=== PATIENT | male | born 1970 | race Caucasian/White ===

== ENCOUNTER → 2016-10-20 | Outpatient (CLI) | payer BC ==
[2016-10-20 14:33] LABS: ALT 39 U/L (21-72); AST 20 U/L (17-59); Alkaline Phosphatase 44 U/L (38-126); Anion Gap 10 mmol/L; Blood Urea Nitrogen 13 mg/dL (9-20); Calcium 9.7 mg/dL (8.4-10.2); Carbon Dioxide 28 mmol/L (22-30); Chloride 107 mmol/L (98-107); Cholesterol 170 mg/dL (<200); Glucose 88 mg/dL (74-99); HDL Cholesterol 50 mg/dL (40-60); Non-African American GFR(MDRD) >60 (>60 ml/min/1.73 sqM); Potassium 4.4 mmol/L (3.5-5.1); Sodium 145 mmol/L (137-145); Total Bilirubin 1.2 mg/dL (0.2-1.3); Total Protein 7.1 g/dL (6.3-8.2); Triglycerides 102 mg/dL (<150)
== END ==
LOC: LABWHC1 14:06
PROVIDERS: ATTEND Internal Medicine Clinical Cardiac Electrophysiology
DX: I10 Essential (primary) hypertension (principal); I48.91 Unspecified atrial fibrillation
CPT/HCPCS: 36415; 80053; 80061

== ENCOUNTER → 2017-03-16 | Outpatient (CLI) | payer BC ==
--- NOTE | 2017-03-16 18:06 | MR ---
EXAMINATION TYPE: MR angio head wo con DATE OF EXAM: 03/16/2017 COMPARISON: NONE HISTORY: Family hx of Aneurysm, Primary care recommended TECHNIQUE: Utilizing 3-D [id number] intracranial MRA of the [place] was performed. FINDINGS: The vertebrobasilar and carotid systems are patent. There is no sizable aneurysm or vascular malform ation. Posterior cerebral artery in the right originates from the internal circulation. IMPRESSION: 1. No evidence of vascular malformation or sizable aneurysm.
--- NOTE | 2017-03-16 18:13 | MR ---
EXAMINATION TYPE: MR cervical spine wo con DATE OF EXAM: 03/16/2017 COMPARISON: NONE HISTORY: Neck pain with Left Shoulder, Left Arm and Hand With Tingling TECHNIQUE: Multiplanar, multisequence images of the cervical spine were acquired. C2-C3: Posterior cervical spondylosis and mild facet arthropathy. Neural foramina remain patent. No d isc herniation or canal stenosis. C3-C4: Mild degenerative disc disease with posterior cervical spondylosis. There is a focal central a nd right paracentral disc protrusion or small herniation capped by spur extending laterally to the ri ght with moderate effacement of thecal sac and borderline to mild canal stenosis. Uncovertebral joint hypertrophy is seen with mild to moderate bilateral foraminal encroachment. C4-C5: Severe degenerative disc disease with diffuse disc protrusion centrally with greater involveme nt paracentrally to the left. Uncovertebral joint hypertrophy noted bilaterally. Moderate canal steno sis and moderate bilateral foraminal encroachment. Disc protrusion extends greater paracentrally and laterally to the left. C5-C6: Severe degenerative disc disease and broad-based central and left paracentral disc protrusion capped by spur with moderate effacement of thecal sac. No spinal cord contact although there is displ acement of the spinal cord secondary to mass effect upon the thecal sac. Moderate bilateral foraminal encroachment greater on the left. C6-C7: Broad-based central left paracentral disc protrusion capped by spur with uncovertebral joint h ypertrophy. Moderate to severe left foraminal encroachment and moderate right foraminal encroachment. There is moderate effacement of thecal sac and AP canal stenosis. C7-T1: Central broad-based disc bulging with mild effacement of thecal sac. No canal stenosis or fora jarrett encroachment. Cervical segments are intact. There is normal alignment. Cervical spinal cord is of normal signal. Craniovertebral junction relationships are within normal limits. There is loss of normal cervical l ordosis. There is a prominence of the thyroid gland with subcentimeter right-sided thyroid nodule IMPRESSION: 1. Multilevel degenerative disc disease with multilevel canal stenosis in multilevel disc protrusions result in significant foraminal encroachment as discussed above.
== END | disposition home or self-care (01) ==
LOC: RADMRIMAIN 16:32
PROVIDERS: ATTEND Nurse Practitioner
DX: M48.02 Spinal stenosis, cervical region (principal); M50.23 Other cervical disc displacement, cervicothoracic region; M50.31 Other cervical disc degeneration, high cervical region; Z82.49 Family history of ischemic heart disease and other diseases of the circulatory system
CPT/HCPCS: 70544; 72141

== ENCOUNTER → 2020-05-09 | Outpatient (CLI) | payer BC ==
[2020-05-09 14:47] LABS: HGB 14.6 gm/dL (13.0-17.5); MCH 29.2 pg (25.0-35.0); MCHC 33.2 g/dL (31.0-37.0); MCV 87.9 fL (80.0-100.0); Mean Platelet Volume 7.8; Platelet Count 186 k/uL (150-450); RBC 5.01 m/uL (4.30-5.90); RDW 13.9 % (11.5-15.5); WBC 6.8 k/uL (3.8-10.6)
[2020-05-09 20:34] LABS: African American GFR (CKD) 102.7 (60.0-200.0); Albumin 4.3 g/dL (3.80-4.90); Albumin/Globulin Ratio 2.15 (1.60-3.17); Anion Gap 9.7 mmol/L (4.00-12.00); Calcium 9.4 mg/dL (8.7-10.3); Carbon Dioxide 24.3 mmol/L (21.6-31.8); Chol/HDL Ratio 4.43; Non-African American GFR(CKD) 88.6 (60.0-200.0); Potassium 3.9 mmol/L (3.5-5.5); Total Bilirubin 0.9 mg/dL (0.2-1.2); Total Protein 6.3 g/dL (6.2-8.2)
[2020-05-09 20:42] LABS: T4, Free (Free Thyroxine) 1.1 ng/dL (0.80-1.80)
== END | disposition home or self-care (01) ==
LOC: LABWHC1 14:04
PROVIDERS: ATTEND Nurse Practitioner Adult Health
DX: E78.5 Hyperlipidemia, unspecified (principal); I48.0 Paroxysmal atrial fibrillation; I10 Essential (primary) hypertension
CPT/HCPCS: 36415; 80053; 80061; 83735; 84439; 84443; 84481; 85027

== ENCOUNTER → 2020-08-26 | Outpatient (CLI) | payer BC ==
[2020-08-26 14:57] LABS: HCT 46.4 % (39.0-53.0); HGB 15.9 gm/dL (13.0-17.5); MCH 29.6 pg (25.0-35.0); MCHC 34.3 g/dL (31.0-37.0); MCV 86.3 fL (80.0-100.0); Mean Platelet Volume 7.7; Platelet Count 219 k/uL (150-450); Poikilocytosis Slight; RBC 5.37 m/uL (4.30-5.90); RDW 14.7 % (11.5-15.5); WBC 7.9 k/uL (3.8-10.6)
[2020-08-26 15:12] LABS: Potassium 4.3 mmol/L (3.5-5.1)
== END | disposition home or self-care (01) ==
LOC: LABPAT 13:31
PROVIDERS: ATTEND Internal Medicine Clinical Cardiac Electrophysiology
DX: Z01.818 Encounter for other preprocedural examination (principal); I48.21 Permanent atrial fibrillation
CPT/HCPCS: 36415; 80051; 82565; 84520; 85027

== ENCOUNTER → 2020-09-25 | Outpatient (CLI) | payer BC ==
[2020-09-25 15:52] LABS: HCT 47.4 % (39.0-53.0); HGB 15.8 gm/dL (13.0-17.5); MCH 28.4 pg (25.0-35.0); MCHC 33.3 g/dL (31.0-37.0); MCV 85.3 fL (80.0-100.0); Mean Platelet Volume 7.8; Platelet Count 225 k/uL (150-450); RBC 5.55 m/uL (4.30-5.90); RDW 14.2 % (11.5-15.5); WBC 8.1 k/uL (3.8-10.6)
[2020-09-25 16:08] LABS: African American GFR (CKD) >90 (>60 ml/min/1.73 sqM); Anion Gap 7 mmol/L; Blood Urea Nitrogen 16 mg/dL (9-20); Carbon Dioxide 30 mmol/L (22-30); Chloride 107 mmol/L (98-107); Non-African American GFR(CKD) 79 (>60 ml/min/1.73 sqM); Potassium 4.5 mmol/L (3.5-5.1); Sodium 144 mmol/L (137-145)
== END | disposition home or self-care (01) ==
LOC: LABPAT 15:20
PROVIDERS: ATTEND Internal Medicine Clinical Cardiac Electrophysiology
DX: Z01.812 Encounter for preprocedural laboratory examination (principal)
CPT/HCPCS: 80051; 82565; 84520; 85027

== ENCOUNTER 2020-10-06 09:32 | Day surgery (SDC) | payer BC ==
[2020-10-01 18:10] VITALS: BMI 43.6
[2020-10-06] MEDS ORDERED: SODIUM CHLORIDE 0.9% 1,000 ML IV ONE (09:58)
[2020-10-06] MEDS ORDERED: HEPARIN SOD,PORK IN 0.45% NACL 25,000 UNIT in 0.45% NACL 1 250ML.BAG IV ONE (12:30)
[2020-10-06] MEDS ORDERED: MIDAZOLAM 2 MG/2 ML VIAL ONE (12:44)
[2020-10-06] MEDS ORDERED: HEPARIN SODIUM,PORCINE 10,000 UNIT/ML 1 ML VIAL ONE (12:44)
[2020-10-06] MEDS ORDERED: PROTAMINE SULFATE 10 MG/ML 5 ML VIAL IV ONE (12:44)
[2020-10-06] MEDS ORDERED: GLYCOPYRROLATE 0.2 MG/ML 2 ML VIAL ONE (12:44)
[2020-10-06] MEDS ORDERED: ISOPROTERENOL 250 MCG/1.25 ML SYR IV ONE (12:44)
[2020-10-06] MEDS ORDERED: PHENYLEPHRINE-0.9% NACL SYG 1,000 MCG/10 ML SYRINGE ONE (12:44)
[2020-10-06] MEDS ORDERED: PROPOFOL 10 MG/ML 20 ML VIAL IV ONE (12:44)
[2020-10-06] MEDS ORDERED: FUROSEMIDE 10 MG/ML 2 ML VIAL ONE (12:44)
[2020-10-06] MEDS ORDERED: NEOSTIGMINE 1 MG/ML 10 ML VIAL ONE (12:44)
[2020-10-06] MEDS ORDERED: fentaNYL (PF) 50 MCG/ML 2 ML AMP ONE (12:44)
[2020-10-06] MEDS ORDERED: LIDOCAINE 1% INJ 10MG/ML (20 ML MDV) ONE ×2 (12:44→13:00)
[2020-10-06] MEDS ORDERED: SUCCINYLCHOLINE CHLORIDE VIAL 200 MG/10 ML VIAL IV ONE (12:44)
[2020-10-06] MEDS ORDERED: ROCURONIUM 10 MG/ML (5 ML VIAL) IV ONE (12:44)
[2020-10-06] MEDS ORDERED: LIDOCAINE 1% INJ 10MG/ML (20 ML MDV) SQ ONE (13:22)
[2020-10-06] MEDS ORDERED: IOPAMIDOL-370 100ML BTL INJ ONE (15:35)
[2020-10-06] MEDS ORDERED: LACTATED RINGERS 1,000 ML IV ONE (15:36)
[2020-10-06] MEDS ORDERED: HEPARIN SODIUM (1,000 UNIT/ML) 1,000 UNIT in SODIUM CHLORIDE 0.9% 1,000 ML IRRIGATION ONE (15:37)
[2020-10-06] MEDS ORDERED: HYDROcodone/APAP 5-325MG 1 EACH TAB PO PRN (17:26)
[2020-10-06] MEDS ORDERED: ACETAMINOPHEN TAB 325 MG TAB PO PRN (17:26)
[2020-10-06] MEDS ORDERED: ACETAMINOPHEN IV (For NPO) 1,000 MG in EMPTY BAG 1 BAG IVPB ONE (17:26)
--- NOTE | 2020-10-06 17:37 | P.HPCAR ---
History of Present Illness This is Dr. العراقي dictating an H/P on this patient The patient was interviewed and examined IMPRESSION / ASSESSMENT: Persistent atrial fibrillation, refractory to drug therapy Hypertension Past history of PVI, antral isolation almost 7-8 years back Increased BMI PLAN: A. fib ablation under general anesthesia Continue ELIQUIS HPI Patient has been experiencing palpitations persistently since Thanksgiving when he walks briskly or long distance he definitely feels the difference and feels tired and fatigued. No dizziness no syncope no chest discomfort Today he looked comfortable no fever chills cough no chest discomfort no undue shortness of breath orthopnea PND ROS: No fever chills or rigors, no cough, phlegm or expectoration, no nausea, vomiting or diarrhea, no hematuria, dysuria, no musculoskeletal complaints, no strokes or seizures, no skin lesions. 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 History of obstructive sleep apnea using CPAP mask History of increased BMI LDL 112, HDL 40, total pressure 177 Sodium 144 potassium 4.5 BUN 16 creatinine 1.1 normal GFR Magnesium 2.0 Normal liver function TSH 0.86, free T4 1 0.1, free T3 3 0.5, which are normal Hemoglobin 15.8, platelet count 225,000, white count 8.1 thousand Physical Exam Vitals: Vital Signs Temp Pulse BP Pulse Ox 10/06/20 09:56 97.9 F 110 H 136/93 98 Intake and Output 10/06/20 10/06/20 10/06/20 06:59 14:59 22:59 Intake Total 1040.7 1411 Output Total 500 Balance 1040.7 911 Intake: IV 1040.7 1411 Output: Urine 500 Other: Weight 156.4 kg Past Medical History Past Medical History: Hypertension, Sleep Apnea/CPAP/BIPAP Additional Past Medical History / Comment(s): SEE DR العراقي'S HISTORY AND PHYSICAL FOR CARDIAC HISTORY ,USES C PAP MACHINE History of Any Multi-Drug Resistant Organisms: None Reported Past Surgical History: Cardiac Ablation, Orthopedic Surgery Additional Past Surgical History / Comment(s): CARDIAC ABLATION X3, RIGHT FOOT SURGERY WITH SCREWS, RIGHT FOREARM-PLATE AND SCREWS, MIDDLE AND RING FINGER OF LEFT HAND, Past Anesthesia/Blood Transfusion Reactions: Postoperative Nausea & Vomiting (PONV) Smoking Status: Former smoker - Past Family History Mother Family Medical History: No Reported History Physical Examination Vital Signs Temp Pulse BP Pulse Ox 10/06/20 09:56 97.9 F 110 H 136/93 98 Intake and Output 10/06/20 10/06/20 10/06/20 06:59 14:59 22:59 Intake Total 1040.7 1411 Output Total 500 Balance 1040.7 911 Intake: IV 1040.7 1411 Output: Urine 500 Other: Weight 156.4 kg Results Current Medications Generic Name Dose Route Start Last Admin Trade Name Freq PRN Reason Stop Dose Admin Acetaminophen 650 mg 10/06/20 17:26 Acetaminophen Tab 325 Mg Tab PO Q6HR PRN Mild Pain Hydrocodone Bitart/Acetaminophen 1 each 10/06/20 17:26 Hydrocodone/Apap 5-325mg 1 Each Tab PO Q4HR PRN Moderate Pain Amlodipine Besylate 2.5 mg 10/06/20 21:00 Amlodipine 2.5 Mg Tab PO HS SANTA Apixaban 5 mg 10/06/20 21:00 Apixaban 5 Mg Tab PO BID SANTA Flecainide Acetate 100 mg 10/06/20 21:00 Flecainide 50 Mg Tab PO BID SANTA Sodium Chloride 1,000 mls @ 20 mls/hr 10/06/20 06:14 Saline 0.9% IV 11/05/20 06:15 .Q24H SANTA Acetaminophen 1,000 mg/ IV 100 mls @ 400 mls/hr 10/06/20 17:26 Solution IVPB 10/06/20 17:40 ONCE ONE Lisinopril 40 mg 10/07/20 09:00 Lisinopril 20 Mg Tab PO DAILY SANTA Metoprolol Succinate 25 mg 10/06/20 21:00 Metoprolol Succinate (Er) 25 Mg Tab.Er.24h PO BID SANTA Sodium Chloride 12 ml 10/06/20 21:00 Sodium Chloride 0.9% Flush 10 Ml Syringe IV Q12HR SANTA Intake and Output 10/06/20 10/06/20 10/06/20 06:59 14:59 22:59 Intake Total 1040.7 1411 Output Total 500 Balance 1040.7 911 Intake: IV 1040.7 1411 Output: Urine 500 Other: Weight 156.4 kg Patient Weight 10/07/20 06:59 Weight 156.4 kg
--- NOTE | 2020-10-06 17:40 | P.PRLE ---
RE: Kamran Guido Dear Jennifer Nashéctormagdalene came in with recurrent, persistent palpitations and was found to be in A. 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
--- NOTE | 2020-10-06 17:51 | P.EPPROC ---
- EP Procedure Note Electrophysiology Procedure Note: Procedure A. fib ablation/PVI Mitral reentrant atrial tachycardia ablation, successful, bidirectional block with differential pacing Linear ablation along the septum along complex fractionated electrograms Diagnosis Atrial fibrillation, symptomatic, refractory to therapy Persistent a symptomatic Result No left atrial appendage mass seen on intracardiac echo Successful A. fib ablation/pulmonary vein isolation of all veins using cryo- ablation Complete entrance block in all 4 veins confirmed No evidence for phrenic nerve injury Significantly dilated left atrium with very dilated left inferior and right inferior pulmonary veins Recovery of right and left superior pulmonary veins close to the antrum, successful cryoablation and isolation Successful ablation of mitral reentrant atrial tachycardia to sinus rhythm Linear ablation along complex fractionated electrograms, left atrial septum, in sinus rhythm Esophageal deflection YES , rightwards Electrical cardioversion with a synchronized shock across the chest NO Procedure details Patient was brought to the EP lab in a fasting state. Written informed consent was obtained prior to the procedure. Procedure performed under general anesthesia After initial muscle relaxant use, muscle relaxants were not given thereafter in order to assess phrenic nerve during procedure. Patient prepped and draped as per protocol Full cryo-set up with standard preparation of the cryoablation tools done. Femoral Venous access obtained on the right and left groins Venous and arterial Sheaths placed. Diagnostic catheters for the high right atrium, phrenic nerve stimulation and pacing, His bundle, RV and coronary sinus placed Intracardiac echo catheter placed. Long sheath placed in the right atrium Left and right transseptal catheterization performed under intracardiac echo guidance. Intravenous heparin with aCT above 300 Later, catheter positioning and balloon positioning in the left atrium, under intracardiac echo guidance Diagnostic EP study with Drug infusion Coronary sinus pacing and recording Baseline measurements Atrial tachycardia the start of the study, tachycardia cycle length to 66 ms QRS 106 ms, QT 328 ms Later in sinus rhythm ND interval 200 ms, sinus cycle length 880 ms AH interval 134 ms, HV interval 37 ms Atrial pacing performed from the high right atrium and the coronary sinus Burst stimulation in the coronary sinus from multiple sites Burst stimulation from the high right atrium Atrial extra stimulation Burst stimulation on Isuprel Transseptal catheterization performed RA pressure 15/7/11 LA pressure 18/5/12 Transseptal catheterization performed with standard sheath. The cryoablation sheath was then placed with an over the wire exchange without any acute complications. All 4 pulmonary veins were isolated in the following sequence: Left superior followed by left inferior followed by right superior followed by right inferior The cryo-ablation balloon was placed at the os of each vein 1.5 mL of IV dye was injected to confirm an occluded vein Goal during cryoablation was to achieve complete occlusion of the pulmonary vein, achieve -30 degrees C at 30 seconds and achieve -40 degrees C at 60 seconds and a time to effect of less than 60-90 seconds, . If not the balloon was repositioned to obtain this result After completion of Cryoblation with durations from 180-240 seconds, entrance block was confirmed with the Attain circular catheter in a roving fashion around the antrum of the pulmonary veins Phrenic nerve pacing was performed from the SVC, right innominate vein area and diaphragm voltage was monitored. Diaphragmatic contractions were also monitored manually for strength of contraction. Parameter goals for each cryo freeze Complete occlusion of the appropriate vein -30 degrees C by 30 seconds -40 degrees C by 60 seconds Minimum between minus 40-55 degrees C Thaw time greater than 10 seconds Balloon visualized by intracardiac echo The esophagus was intubated. Esophageal Temperature monitoring with a CIRCA ca theter formed. Esophageal deflection for hypothermia of the esophagus below 30 degrees C Left superior pulmonary vein Complete isolation, entrance block Left inferior pulmonary vein Complete isolation, entrance block Right superior pulmonary vein, during phrenic nerve pacing Complete isolation, entrance block Right inferior pulmonary vein, during phrenic nerve pacing Complete isolation, entrance block At the end of the procedure the Achieve catheter was once again used to check for entrance block Phrenic nerve stimulation was performed to confirm diaphragmatic stimulation the end of the procedure Cine fluoroscopy was performed at the very end of the procedure to confirm movement of both diaphragms with inspiration and expiration Patient was in an atrial tachycardia. 3-D electro anatomic mapping revealed mitral reentry This was confirmed with entrainment mapping both in the roof as well as in the mitral isthmus Linear ablation the mitral isthmus result in termination of the tachycardia Following that the line was completed and interrogated with differential pacing Bidirectional block with differential pacing Mapping in sinus rhythm Complex fractionated electrograms along the septum were mapped Linear ablation incorporating these areas along the left atrial septum This RF line was joint to the right-sided pulmonary vein ablation set At the end of the procedure the patient was extubated Heparin was reversed Venous sheaths were removed and hemostasis assured Procedures performed (PVI - CRYO Ablation and linear ablation of the mitral isthmus and the left atrial septum) Diagnostic EP study CS pacing and recording Left and right transseptal catheterization 3D mapping Intracardiac echocardiography Pulmonary vein isolation with transseptal and comprehensive EPS, [id number] Left atrial mitral isthmus reentrant tachycardia ablation, +[id number] Linear ablation, left atrium septum, +[id number] Drug Infusion +[id number]
[2020-10-06] MEDS: SODIUM CHLORIDE 0.9% 1,000 ML IV SCH (20:02)
[2020-10-06] MEDS: APIXABAN 5 MG TAB PO SCH (20:03)
[2020-10-06] MEDS: FLECAINIDE 50 MG TAB PO SCH (20:03)
[2020-10-06] MEDS: METOPROLOL SUCCINATE (ER) 25 MG TAB.ER.24H PO SCH (20:03)
[2020-10-06] MEDS ORDERED: amLODIPine 2.5 MG TAB PO SCH (21:00)
[2020-10-07] MEDS: SODIUM CHLORIDE 0.9% 1,000 ML IV SCH (05:26)
[2020-10-07 08:15] VITALS: BP 107/68; PULSE 76; RESP 20; TEMP 98
[2020-10-07] MEDS: APIXABAN 5 MG TAB PO SCH (08:26)
[2020-10-07] MEDS: FLECAINIDE 50 MG TAB PO SCH (08:26)
[2020-10-07] MEDS: METOPROLOL SUCCINATE (ER) 25 MG TAB.ER.24H PO SCH (08:26)
[2020-10-07] MEDS ORDERED: lisinopriL 20 MG TAB PO SCH (09:00)
--- NOTE | 2020-10-07 10:13 | P.DS ---
Providers Attending physician: Ander العراقي Primary care physician: [facility] Course: Patient is doing fairly well He complains of a sore throat but denies any chest discomfort. He is a little dizzy when he gets up but no loss of consciousness Groins if he well is minimal oozing last night there is no hematoma no swelling On examination his blood pressures 106/65 mmHg pulse rate is in the 80s afebrile 98.4F Breath sounds are clear no rhonchi no crackles Normal heart sounds normal S1 normal S2 no murmurs Abdomen soft nontender Extremities warm no edema no swelling minimal bruising in bilateral groins, no hematoma Impression Persistent atrial tachycardia, mitral reentry, status post successful ablation with proven bidirectional block with differential pacing Atrial fibrillation, persistent status post PVI Linear ablation along the septum behind the fossa ovalis along complex fractionated electrograms Plan Continue ELIQUIS Continue antihypertensive therapy Continue treatment for obstructive sleep apnea Weight loss recommended Start atorvastatin 20 mg by mouth daily, goal LDL reduction by at least 30%. LDL goal of less than 80-90 mg/dL, patient is nondiabetic Discharge home today and follow Dr. العراقي in about 2-3 weeks Plan - Discharge Summary Discharge Rx Participant: No New Discharge Prescriptions: New Atorvastatin [Lipitor] 20 mg PO DAILY #90 tablet Continue amLODIPine [Norvasc] 2.5 mg PO HS Metoprolol Succinate [Toprol XL] 25 mg PO BID Apixaban [Eliquis] 5 mg PO BID lisinopriL 40 mg PO DAILY Flecainide Acetate 100 mg PO BID Discharge Medication List Apixaban [Eliquis] 5 mg PO BID 10/01/20 [History] Flecainide Acetate 100 mg PO BID 10/01/20 [History] Metoprolol Succinate [Toprol XL] 25 mg PO BID 10/01/20 [History] amLODIPine [Norvasc] 2.5 mg PO HS 10/01/20 [History] lisinopriL 40 mg PO DAILY 10/01/20 [History] Atorvastatin [Lipitor] 20 mg PO DAILY #90 tablet 10/07/20 [Rx] Follow up Appointment(s)/Referral(s): Ander العراقي MD [STAFF PHYSICIAN] - 2 Weeks Activity/Diet/Wound Care/Special Instructions: Post EP study - Ablation instructions 1. Keep access sites dry for 2 days. 2. No heavy lifting or straining for 2 days. 3. Avoid bending the hips repeatedly for 2 days. 4. You may go up and down stairs slowly Call if the following is noted 1. Bleeding, increasing swelling or pain at the access sites. 2. Increasing chest discomfort, especially upon taking a deep breath. 3. Increasing shortness of breath, at rest or with exertion. 4. Undue cough / phlegm 5. Difficulty or pain while swallowing. 6. Pain or change in color in the extremities. 7. Fever, chills, rigors. 8. Increasing headache or neurologic symptoms. 9. Dizziness, fainting, palpitations Continue all current medications including flecainide and ELIQUIS Discharge Disposition: HOME SELF-CARE
== END 2020-10-07 15:23 | disposition home or self-care (01) ==
LOC: CATHEP 09:32 → 3SCARD 17:11 → CATHEP 10-07 15:23
PROVIDERS: ATTEND Internal Medicine Clinical Cardiac Electrophysiology
DX: I48.19 Other persistent atrial fibrillation (principal); I47.1 Supraventricular tachycardia; I10 Essential (primary) hypertension; Z79.01 Long term (current) use of anticoagulants; Z79.899 Other long term (current) drug therapy; Z87.891 Personal history of nicotine dependence; G47.30 Sleep apnea, unspecified; Z98.890 Other specified postprocedural states
CPT/HCPCS: 85347; 93623; 93662; 93613; 93655; 93656; C1769 ×4; C1894 ×2; C1730 ×2; C1759; C1893; C1733; C1766; C1732; J2250; J0330; J2720; J1644 ×3; J1940; J2710; J2001; J3010; J2370; J2704; Q9967; 93657

== ENCOUNTER → 2025-01-17 | Outpatient (CLI) | payer BC ==
[2025-01-17 15:08] LABS: HCT 43.2 % (39.6-50.0); MCH 29.5 pg (27.0-32.0); MCHC 32.4 g/dL (32.0-37.0); MCV 91.1 FL (80.0-97.0); Mean Platelet Volume 10.7 FL (9.5-12.2); NRBC Per 100 WBC 0 X 10*3/uL (0.00-0.01); Platelet Count 172 X 10*3/uL (140-440); RBC 4.74 X 10*6/uL (4.40-5.60); RDW 14.5 % (11.5-14.5)
[2025-01-17 15:24] LABS: Carbon Dioxide 25.6 mmol/L (21.6-31.8); Chloride 110 mmol/L (96-109); Potassium 4.2 mmol/L (3.5-5.5); Sodium 145 mmol/L (135-145)
== END | disposition home or self-care (01) ==
LOC: LABWHC1 09:48
PROVIDERS: ATTEND Internal Medicine Clinical Cardiac Electrophysiology
DX: Z01.812 Encounter for preprocedural laboratory examination (principal); I48.0 Paroxysmal atrial fibrillation
CPT/HCPCS: 80051; 82565; 84520; 85027

== ENCOUNTER 2025-02-21 09:24 | Day surgery (SDC) | payer BC ==
[2025-02-18 14:15] VITALS: BMI 36.6
[2025-02-21] MEDS: IV FLUID CONTINUATION 1,000 ML IV ONE ×2 (08:34→09:32)
[~2025-02-21 09:24] MED LIST: HYDROmorphone 0.5 MG/0.5 ML SYRINGE IVP PRN; MIDAZOLAM 2 MG/2 ML VIAL IV PRN
[2025-02-21] MEDS: SODIUM CHLORIDE 0.9% 1,000 ML IV SCH (09:32)
[2025-02-21] MEDS: ONDANSETRON 4 MG/2 ML VIAL IVP STA (10:27)
[2025-02-21] MEDS ORDERED: HEPARIN SODIUM,PORCINE 5,000 UNIT/ML 1 ML VIAL ONE (11:39)
[2025-02-21] MEDS ORDERED: ONDANSETRON 4 MG/2 ML VIAL ONE (11:39)
[2025-02-21] MEDS ORDERED: MIDAZOLAM 2 MG/2 ML VIAL ONE (11:39)
[2025-02-21] MEDS ORDERED: SUCCINYLCHOLINE CHLORIDE 200 MG/10 ML VIAL IV ONE (11:39)
[2025-02-21] MEDS ORDERED: ROCURONIUM 10 MG/ML (5 ML VIAL) IV ONE (11:39)
[2025-02-21] MEDS ORDERED: diphenhydrAMINE 50 MG/ML 1 ML VIAL ONE (11:39)
[2025-02-21] MEDS ORDERED: fentaNYL (PF) 50 MCG/ML 2 ML AMP ONE (11:39)
[2025-02-21] MEDS ORDERED: LIDOCAINE 1% INJ 10MG/ML (20 ML MDV) ONE (11:39)
[2025-02-21] MEDS ORDERED: HEPARIN SODIUM,PORCINE 10,000 UNIT/ML 1 ML VIAL ONE (11:39)
[2025-02-21] MEDS ORDERED: PROPOFOL 10 MG/ML 20 ML VIAL IV ONE (11:39)
[2025-02-21] MEDS: LIDOCAINE 1% INJ 10MG/ML (20 ML MDV) SQ ONE (11:41)
[2025-02-21] MEDS: HEPARIN SODIUM,PORCINE/D5W 25,000 UNIT in EMPTY BAG 1 BAG IV ONE (11:50)
--- NOTE | 2025-02-21 11:59 | P.HPCAR ---
History of Present Illness This is Dr. العراقي dictating an H/P on this patient The patient was interviewed and examined IMPRESSION / ASSESSMENT: Recurrent persistent atrial fibrillation Failed prior A-fib ablation and flecainide Increased BMI Hypertension PLAN: A-fib ablation, interrogate pulmonary veins, interrogate for mitral reentry Linear ablation of the left atrial roof and septum HPI Patient continues to have episodes of atrial fibrillation. His twelve-lead EKG has shown atrial fibrillation rather than macro reentry Cycle length almost 240 ms Denies any fever chills cough expectoration Symptomatic with palpitations and fatigue ROS: No fever chills or rigors, no cough, phlegm or expectoration, no nausea, vomiting or diarrhea, no hematuria, dysuria, no musculoskeletal complaints, no strokes or seizures, no skin lesions. EXAMINATION: 97.2 F, pulse irregular, blood pressure 144/90 mmHg No JVD No murmurs irregular rhythm but normal heart sounds Clear lungs no rhonchi no crackles REVIEW OF LABS, ECG & MEDICAL DATA Prior A-fib ablation involved PVI at an antral level, mitral reentry ablation Physical Exam Vitals: Vital Signs Temp Resp BP Pulse Ox 02/21/25 10:17 97.2 F L 16 144/90 100 Past Medical History Past Medical History: Atrial Fibrillation, Hyperlipidemia, Hypertension, Sleep Apnea/CPAP/BIPAP Additional Past Medical History / Comment(s): SEE DR العراقي'S HISTORY AND PHYSICAL FOR CARDIAC HISTORY ,USES C PAP MACHINE History of Any Multi-Drug Resistant Organisms: None Reported Past Surgical History: Cardiac Ablation, Orthopedic Surgery Additional Past Surgical History / Comment(s): CARDIAC ABLATION X3, RIGHT FOOT SURGERY WITH SCREWS, RIGHT FOREARM-PLATE AND SCREWS, MIDDLE AND RING FINGER OF LEFT HAND, Past Anesthesia/Blood Transfusion Reactions: Postoperative Nausea & Vomiting (PONV) Smoking Status: Former smoker - Past Family History Mother Family Medical History: No Reported History Physical Examination Vital Signs Temp Resp BP Pulse Ox 02/21/25 10:17 97.2 F L 16 144/90 100 Results Current Medications Generic Name Dose Route Start Last Admin Trade Name Freq PRN Reason Stop Dose Admin Hydromorphone HCl 0.5 mg 02/21/25 07:00 Hydromorphone 0.5 Mg/0.5 Ml Syringe IVP 02/21/25 23:00 Q5M PRN Phase 1 or 2 - Pain Control Sodium Chloride 1,000 mls @ 20 mls/hr 02/21/25 05:53 02/21/25 09:32 Saline 0.9% IV 03/23/25 05:52 20 mls/hr .Q24H SANTA Administration Lactated Ringer's 1,000 mls @ 20 mls/hr 02/21/25 05:53 Lactated Ringers IV 03/23/25 05:52 .Q24H SANTA Midazolam HCl 2 mg 02/21/25 07:00 Midazolam 2 Mg/2 Ml Vial IV 02/21/25 23:00 ONCE PRN Pre-Op Anxiety
[2025-02-21] MEDS: HEPARIN SODIUM,PORCINE (1 ML) 2,500 UNIT in SODIUM CHLORIDE 0.9% 250 ML IRRIGATION ONE (13:06)
[2025-02-21] MEDS: HEPARIN SODIUM,PORCINE 10,000 UNIT in SODIUM CHLORIDE 0.9% 1,000 ML IRRIGATION ONE (13:06)
[2025-02-21] MEDS: HEPARIN SODIUM (1,000 UNIT/ML) 1,000 UNIT in SODIUM CHLORIDE 0.9% 1,000 ML IRRIGATION ONE (13:06)
[2025-02-21] MEDS: IOPAMIDOL-370 100ML BTL INJ ONE (13:07)
[2025-02-21] MEDS ORDERED: ACETAMINOPHEN TAB 325 MG TAB PO PRN (16:55)
--- NOTE | 2025-02-21 17:13 | P.EPPROC ---
- EP Procedure Note Electrophysiology Procedure Note: PROCEDURE A. fib ablation with entry-level PVI, left atrial roof ablation, left atrial septal ablation, ablation in the left atrial anterior wall scar at risk for atrial reentry with isochronal mapping DIAGNOSIS Persistent atrial fibrillation, symptomatic, refractory to therapy including 2 prior A-fib ablations one in 2011, the other in 2020 RESULT No left atrial appendage mass seen on intracardiac echo, thickened pericardium with exudate in the pericardial space Large sized pulmonary veins Successful A. fib ablation/pulmonary vein isolation of all veins using cryo- ablation, large hoopa antral level isolation performed Complete entrance block in all 4 veins confirmed with voltage mapping No evidence for phrenic nerve injury Left atrial roof ablation with cryoablation lesions and complete broad line of block confirmed with voltage mapping. Left atrial septal ablation with cryoablation as well as RF ablation, posterior to the transseptal puncture site Mid anterior scar, patchy in nature and extending from the mitral annulus to the right pulmonary venous antrum. Isopril mapping performed, area at risk for reentry. Successful ablation from the mitral annulus to the right sided pulmonary veins, transecting this scar. In addition the patchy areas were encircled and entrance and exit block within the zones was confirmed with 3D mapping Esophageal deflection NO Electrical cardioversion with a synchronized shock across the chest YES PROCEDURE DETAILS Written informed consent prior to procedure. Patient brought to the EP lab. General anesthesia given. Heparin administered. ACT maintained above 300 seconds Both groins prepped and draped per protocol and venous sheaths placed. Esophagus intubated, circa catheter for temperature monitoring an endoscope for possible esophageal deflection. Phrenic nerve monitoring performed. Esophageal temperature monitoring performed. Esophageal deflection performed if circa catheter overlapping with the balloon or circa temperature less than 27.5°C Intracardiac echocardiography performed. Pericardium evaluated. Left atrial appendage evaluated. Left atrium evaluated along with pulmonary veins Transseptal catheterization performed under fluoroscopic guidance and intracardiac echo guidance Cryoablation sheath exchanged, balloon catheter along with achieve catheter placed in the left atrium. Pulmonary veins isolated in the following sequence: Left superior pulmonary vein followed by left inferior pulmonary vein, followed by right inferior pulmonary vein and lastly right superior pulmonary vein. Phrenic nerve stimulation along with capture thresholds within the SVC and right superior pulmonary vein to identify the phrenic nerve proximity to the cryo- balloon. Pulmonary veins isolated and confirmed with entrance and exit block. Phrenic nerve integrity confirmed at the end of the procedure Very large hoopa antral level ablation performed with subselective lesions that resulted in large antral ablation. This took extra time and effort Ablation of the left atrial roof performed with sequential lesions from the left superior to the right superior pulmonary veins. Ablation of the electrograms confirmed with voltage mapping. The broad zone of ablation in the left atrial roof and the upper posterior wall Ablation of the left atrial septum performed with cannulation of the superior branch of the right inferior or the inferior branch of the right superior vein to achieve ablation of the posterior septum of the left atrium. Later the ablation of the septum was extended with RF ablation and complete isolation with entrance and exit block within the zone was confirmed with pacing techniques Ablation of electrograms confirmed Patient remained in atrial fibrillation despite PVI and left atrial roof ablation. Electrical cardioversion to sinus rhythm was performed. Following that 3D electroanatomic [place] mapping was performed the previous mitral reentry line along the mitral annulus to the left inferior pulmonary vein was intact 3D electroanatomic mapping revealed a patchy scar, linear, from the mitral annulus septally to the right sided pulmonary venous luna. Detailed mapping including Isochronal mapping was performed and this area was clearly at risk for atrial reentry. While linear ablation was performed to connect the mitral annulus to the right sided antrum, the broad area of patchiness was encircled and complete entrance and exit block was confirmed within this zone. Electrical cardioversion performed for persistence of atrial fibrillation despite successful ablation. Diagnostic catheters for the high right atrium, His bundle, coronary sinus placed. LA and RA pressures recorded LA pressure: 18/4/10 Diagnostic EP study with coronary sinus pacing and recording Baseline measurements: NV interval 176 ms QRS 113 ms, QT 331 ms, sinus cycle length 1125 ms AH interval 95 ms and HV interval 30 ms Isopril mapping was performed in the anterior LA wall Pacing within the isolated and encircled atrial tissue was performed for exit block confirmation Venous sheaths were removed and hemostasis assured with a closure device. Patient extubated and transferred to recovery Increase procedural time Difficult transseptal catheterization, thick septum requiring multiple techniques to allow cannulation of the left atrium. This took extra effort and time Very large pulmonary veins. All his pulmonary veins were of large size. The tributaries were subselected and cryo ablations of shorter duration were performed, multiple. This allowed for very large sacral antral level isolation which was later confirmed with voltage mapping. Long left atrial roof, large left atrium Anterior left atrial wall patchy scar mapped in detail with voltage mapping and isochronal mapping PROCEDURES PERFORMED Diagnostic EP study CS pacing and recording Left and right transseptal catheterization Catheter the mapping of the tachycardia Intracardiac echocardiography Pulmonary vein isolation with transseptal and comprehensive EPS, [id number] Extended procedure duration Left atrial roof line, [id number] Linear ablation, septum left atrium, [id number] Linear ablation in the anterior wall of the left atrium Electrical cardioversion with a synchronized shock across the chest [id number]
--- NOTE | 2025-02-21 17:16 | P.PRLE ---
RE: Kamran Guido Dear Mariama Peace underwent detailed mapping and ablation for atrial fibrillation. As you know he has had 2 prior A-fib ablations, one in 2011 and then subsequently another one in 2020. This time he presented with A-fib rather than atrial tachycardia. Intraoperatively, intracardiac echo revealed thickened pericardium with exudative pericarditis. This is probably the reason why his atrial fibrillation has recurred. Entry-level PVI with very large white [place] lesions was performed, left atrial roof and upper posterior wall ablation was performed, left atrial septal ablation and ablation of the anterior LA wall scar was performed. He tolerated the procedure well without any acute complications I would also recommend abstinence from regular alcohol use and weight reduction If despite this effort he continues to have episodes of persistent atrial fibrillation, dofetilide could be considered for persistent atrial fibrillation. He will continue anticoagulation for the next 3 months uninterrupted Thank you for entrusting me with the care of the patient Warm regards Sincerely Ander العراقي
[2025-02-21] MEDS: ACETAMINOPHEN IV (For NPO) 1,000 MG in EMPTY BAG 1 BAG IVPB ONE (18:17)
[2025-02-21] MEDS: APIXABAN 5 MG TAB PO SCH (20:06)
[2025-02-21] MEDS: COLCHICINE 0.6 MG EACH PO STA (20:06)
[2025-02-21] MEDS: FLECAINIDE 50 MG TAB PO SCH (20:06)
[2025-02-22] MEDS: LACTATED RINGERS 1,000 ML IV SCH (05:48)
[2025-02-22] MEDS: FUROSEMIDE 20 MG TAB PO SCH (05:58)
[2025-02-22] MEDS: ATORVASTATIN 20 MG TAB PO SCH (08:04)
[2025-02-22] MEDS: amLODIPine 5 MG TAB PO SCH (08:04)
[2025-02-22] MEDS: COLCHICINE 0.6 MG EACH PO SCH (08:05)
[2025-02-22] MEDS: METOPROLOL SUCCINATE (ER) 50 MG TAB.ER.24H PO SCH (08:07)
--- NOTE | 2025-02-22 08:08 | P.DS ---
Providers Attending physician: Ander العراقي Primary care physician: [facility] Course: Patient is doing well. Denies any chest discomfort dizziness lightheadedness. His groins have healed well no hematoma no swelling He maintains sinus rhythm twelve-lead EKG shows sinus mechanism Normal LA interval narrow QRS Heart sounds are normal Breath sounds are clear On telemetry at night he had runs of tachycardia, atrial tachycardia with heart rates up to 250 beats a minute. These were short but very frequent bursts and occurred while he was sleeping Currently he is on flecainide 50 mg twice daily which is a lower dose than what he normally takes He is on Eliquis Impression A-fib ablation, redo Entry-level PVI Left atrial septal ablation Left atrial roof and upper posterior wall ablation Ablation along the areas of scar on the anterior wall from the mitral annulus to the right sided anterior luna Plan Continue flecainide. Detailed discussion with the patient and explained the entire events 1 consideration is to use disopyramide in place of flecainide if he continues to have such episodes I will give him a follow-up Holter monitor in the office after 2 to 3 weeks Until then I plan to add colchicine 0.6 mg p.o. daily temporarily Stable for discharge Plan - Discharge Summary Discharge Rx Participant: No New Discharge Prescriptions: New Flecainide [Tambocor] 50 mg PO Q12HR #180 tablet Colchicine 0.6 mg PO DAILY #14 tablet Discontinued Flecainide Acetate [Tambocor] 100 mg PO BID No Action Apixaban [Eliquis] 5 mg PO BID lisinopriL 40 mg PO DAILY Atorvastatin [Lipitor] 20 mg PO DAILY #90 tablet amLODIPine [Norvasc] 5 mg PO DAILY Metoprolol Succinate [Toprol XL] 50 mg PO DAILY Discharge Medication List Apixaban [Eliquis] 5 mg PO BID 10/01/20 [History] lisinopriL 40 mg PO DAILY 10/01/20 [History] Atorvastatin [Lipitor] 20 mg PO DAILY #90 tablet 10/07/20 [Rx] Metoprolol Succinate [Toprol XL] 50 mg PO DAILY 02/18/25 [History] amLODIPine [Norvasc] 5 mg PO DAILY 02/18/25 [History] Colchicine 0.6 mg PO DAILY #14 tablet 02/21/25 [Rx] Flecainide [Tambocor] 50 mg PO Q12HR #180 tablet 02/21/25 [Rx] Follow up Appointment(s)/Referral(s): Ander العراقي MD [STAFF PHYSICIAN] - 1 Week Activity/Diet/Wound Care/Special Instructions: Post EP study - Ablation instructions 1. Keep access sites dry for 2 days. 2. No heavy lifting or straining for 2 days. 3. Avoid bending the hips repeatedly for 2 days. 4. You may go up and down stairs slowly 5. If you have had an ablation for atrial fibrillation or atrial flutter and are on a blood thinner, do not stop the blood thinner even temporarily for 3 months post ablation Call if the following is noted 1. Bleeding, increasing swelling or pain at the access sites. 2. Increasing chest discomfort, especially upon taking a deep breath. 3. Increasing shortness of breath, at rest or with exertion. 4. Undue cough / phlegm 5. Difficulty or pain while swallowing. 6. Pain or change in color in the extremities. 7. Fever, chills, rigors. 8. Increasing headache or neurologic symptoms. 9. Dizziness, fainting, palpitations For patients who have undergone an A-fib ablation /atrial flutter ablation Strict instruction; do NOT stop anticoagulation (Eliquis/Xarelto/Pradaxa) for the next 2 months temporarily, for any elective, nonurgent surgery. This increases the risk of stroke, post A-fib ablation Reduce flecainide to 50 mg twice daily Discharge Disposition: HOME SELF-CARE
[2025-02-22 08:54] VITALS: BP 121/70; PULSE 60; RESP 17; TEMP 98.7
== END 2025-02-22 12:57 | disposition home or self-care (01) ==
LOC: CATHEP 09:24 → 6NMEDSUR 16:20 → CATHEP 02-22 12:57
PROVIDERS: ATTEND Internal Medicine Clinical Cardiac Electrophysiology
DX: I48.19 Other persistent atrial fibrillation (principal); I48.92 Unspecified atrial flutter; I47.19 Other supraventricular tachycardia; I11.9 Hypertensive heart disease without heart failure; I43 Cardiomyopathy in diseases classified elsewhere; E78.5 Hyperlipidemia, unspecified; G47.30 Sleep apnea, unspecified; Z79.01 Long term (current) use of anticoagulants; Z79.899 Other long term (current) drug therapy; Z87.891 Personal history of nicotine dependence
CPT/HCPCS: 92960; 93656; 93657; C1760 ×2; C1730 ×2; C1731; C1759; C1733; C1766; C1732; J2250; J0330; J1200; J1644 ×4; J2405; J2003; J3010; J0131; J2704; Q9967; 93623; 93662